=== PATIENT | male | born 1950 | race Caucasian/White ===

== ENCOUNTER 2024-01-27 13:02 | Emergency (ER) | payer OTHER, MEDICARE ==
[~2024-01-27] VITALS: Ht 182.9 cm; Wt 112.4 kg
[~2024-01-27 13:02] MED LIST: ALLOPURINOL300 MG PO; AMLODIPINE BESY10 MG PO; ASPIRIN EC81 MG PO; ATENOLOL100 MG PO; DICLOFENAC SODI75 MG PO; EFFIENT10 MG PO; GABAPENTIN600 MG PO; LIPITOR40 MG PO; LOSARTAN POTASS25 MG PO; METFORMIN HCL750 MG PO; OXYCODONE HCL5 MG PO; SENNA LAX8.6 MG PO; VITAMIN C500 M1 PO; VITAMIN D250 MCG PO; XARELTO10 MG PO
[2024-01-27] MEDS ORDERED: ondansetron HCL 4 MG/2 ML VIAL IV ONE ×2 (13:45→18:15)
[2024-01-27] MEDS ORDERED: LACTATED RINGER'S 1,000 ML IV ONE (13:45)
[2024-01-27] MEDS ORDERED: HYDROmorphone HCL 1 MG/ML SYR IV ONE ×2 (13:45→16:15)
[2024-01-27 14:08] LABS: BASOPHILS 0.4 % (0-2); EOSINOPHILS 0.1 % (0-6); HEMATOCRIT 44.9 % (35.0-50.0); HEMOGLOBIN 14.5 g/dL (12.0-18.0); LYMPHOCYTES 3.2 % (24-44); MCH 30.4 (27-36); MCHC 32.3 g/dl (30-36); MCV 94.1 fl (81-99); MONOCYTES 2.8 % (0-12); NEUTROPHILS 93.5 % (39-80); PLATELET COUNT 263 K/uL (140-440); RBC 4.77 M/ul (4.3-5.7); RDW 16.1 (10.5-15.0)
[2024-01-27 14:30] LABS: ALBUMIN 4.1 g/dL (3.4-5.0); ALBUMIN/GLOBULIN RATIO 1.28 (1.1-2.4); ANION GAP 16.1 (7-21); BILIRUBIN, TOTAL 0.7 ng/dL (0.2-1.0); BUN/CREATININE RATIO 16.26 (6.0-28.6); CALCIUM 8.9 mg/dL (8.5-10.1); CREATININE, SERUM 2.52 mg/dL (0.70-1.30); POTASSIUM 5.1 mmol/L (3.5-5.1); PROTEIN, TOTAL 7.3 g/dL (6.4-8.2)
[2024-01-27 14:41] LABS: ABO B; RH POSITIVE
[2024-01-27 14:42] LABS: ANTIBODY SCREEN NEGATIVE
[2024-01-27] MEDS ORDERED: IRBESARTAN150 MG PO (15:01)
[2024-01-27] MEDS ORDERED: SPIRONOLACTONE25 MG PO (15:02)
[2024-01-27] MEDS ORDERED: LACTATED RINGER'S 1,000 ML IV SCH (16:15)
[2024-01-27] MEDS ORDERED: LIDOCAINE HCL 4% 1 EACH PATCH TD ONE (16:15)
[2024-01-27] MEDS ORDERED: ONDANSETRON ODT8 MG PO (18:42)
[2024-01-27] MEDS ORDERED: PERCOCET 5-3251 EACH PO (18:42)
[2024-01-27] MEDS ORDERED: LIDODERM1 EACH TOP (18:42)
[2024-01-27] MEDS ORDERED: ONDANSETRON 4 MG HOME.PACK SL ONE (18:45)
[2024-01-27] MEDS ORDERED: OXYCODONE/ACETAMINOPHEN 1 TAB HOME.PACK PO ONE (18:45)
--- NOTE | 2024-01-27 18:48 | EKG ---
[facility] [address] [facility] [place], [place] [address] Signed Normal sinus rhythm Normal ECG No previous ECGs available Confirmed by Yannick Stein MD ([id number]) on 01/27/2024 6:48:24 PM Electronically Signed By: YANNICK STEIN MD 01/27/24 1848 PATIENT NAME: ROSAURA ROSAS KENIA Electrocardiogram DATE OF : 52 PHYSICIAN: YANNICK STEIN MD REPORT #: [id number] REPORT IS CONFIDENTIAL AND NOT TO BE RELEASED WITHOUT AUTHORIZATION
[2024-01-27 19:17] VITALS: BP 144/86
[2024-01-27] MEDS ORDERED: LIDOCAINE PATCH REMOVAL 1 EA TD SCH (21:00)
== END 2024-01-27 19:19 | disposition home or self-care (01) ==
LOC: ED 13:02
PROVIDERS: Emergency Medicine
DX: S22.42XA Multiple fractures of ribs, left side, initial encounter for closed fracture (principal); V86.59XA Driver of other special all-terrain or other off-road motor vehicle injured in nontraffic accident, initial encounter; I10 Essential (primary) hypertension; E11.9 Type 2 diabetes mellitus without complications; Z79.82 Long term (current) use of aspirin; Z79.899 Other long term (current) drug therapy
CPT/HCPCS: 36415; 71046; 71250; 80053; 82553; 83880; 84484; 85025; 85060; 86850; 86900; 86901; 93005; 93010; 96374; 96375; 96376; 99284-25; A9270; G0480; J1170; J2405; J7121